=== PATIENT | female | born 1975 | race African-American/Black ===

== ENCOUNTER 2017-11-02 15:08 | Emergency (ER) | payer MEDICAID ==
[~2017-11-02] VITALS: Ht 165.1 cm; Wt 70.0 kg
[2017-11-02 15:10] VITALS: BP 140/80
== END 2017-11-02 17:43 | disposition left against medical advice (07) ==
LOC: ER 15:26
DX: Z53.21 Procedure and treatment not carried out due to patient leaving prior to being seen by health care provider (principal)

== ENCOUNTER 2018-06-03 18:48 | Emergency (ER) | payer MEDICAID ==
[~2018-06-03] VITALS: Ht 162.6 cm; Wt 92.2 kg
[2018-06-03] MEDS ORDERED: ACETAMINOPHEN 325MG TABLET PO ONE (20:30)
[2018-06-03 21:00] VITALS: BP 120/72
== END 2018-06-03 21:05 | disposition home or self-care (01) ==
LOC: ER 18:48
DX: M54.31 Sciatica, right side (principal); F12.10 Cannabis abuse, uncomplicated; F17.210 Nicotine dependence, cigarettes, uncomplicated; Z98.890 Other specified postprocedural states
CPT/HCPCS: 99283

== ENCOUNTER 2018-08-30 07:47 | Inpatient (IN) | payer MEDICAID ==
[~2018-08-30] VITALS: Ht 162.6 cm; Wt 75.3 kg
[2018-08-30 08:32] LABS: BASOPHILS % 0.9 % (0.0-2.0); EOSINOPHILS % 0.9 % (0.0-5.0); HEMATOCRIT. 43.4 % (36.0-48.0); HEMOGLOBIN. 15.2 g/dL (12.0-16.0); LYMPHOCYTES % 24.6 % (20.0-50.0); MEAN CORPUSCULAR HEMOGLOBIN 31.3 pg (28.0-32.0); MEAN CORPUSCULAR VOLUME 89.5 fL (81.0-99.0); MEAN PLATELET VOLUME 11.7 fl (7.4-10.4); MONOCYTES % 6.6 % (2.0-8.0); PLATELET 227 x1000/uL (130-400); RED BLOOD CELL COUNT 4.85 mill/uL (4.2-5.4); RED CELL DISTRIBUTION WIDTH 13.5 % (11.6-14.6)
[2018-08-30 08:39] LABS: CHLORIDE 89 mEq/L (98-107)
[2018-08-30] MEDS ORDERED: MORPHINE SULFATE 4 MG/ML CPJ (NOT FOR IM USE) IV ONE (09:45)
[2018-08-30] MEDS ORDERED: POTASSIUM CHLORIDE 20MEQ TABLET SR PO ONE (10:30)
[2018-08-30 13:00] VITALS: BP 132/79
[2018-08-30] MEDS ORDERED: IPRATROPIUM/ALBUTEROL 0.5-3(2.5)MG/3ML NEB INH PRN (14:00)
[2018-08-30] MEDS ORDERED: DOCUSATE SODIUM 100MG CAPSULE PO PRN (14:00)
[2018-08-30] MEDS ORDERED: POTASSIUM CHLORIDE 20MEQ TABLET SR PO SCH (14:00)
[2018-08-30] MEDS ORDERED: LORAZEPAM 0.5MG TABLET PO PRN (14:00)
[2018-08-30] MEDS ORDERED: CLONIDINE 0.1MG TABLET PO PRN (14:00)
[2018-08-30] MEDS ORDERED: HYDROCODONE/ACETAMINOPHEN 5/325MG TABLET PO PRN (14:00)
[2018-08-30] MEDS ORDERED: ACETAMINOPHEN 325MG TABLET PO PRN (14:00)
[2018-08-30] MEDS: ONDANSETRON HCL 4MG/2ML INJ IV PRN (14:20)
[2018-08-30] MEDS: PANTOPRAZOLE 40MG DR TABLET PO SCH (14:20)
[2018-08-30] MEDS: MORPHINE SULFATE 2 MG/ML CPJ (NOT FOR IM USE) IV PRN (14:23)
[2018-08-30] MEDS ORDERED: TRAM50TA PO (15:07)
[2018-08-30 16:00] VITALS: BP 120/70
[2018-08-30] MEDS ORDERED: POTASSIUM CHLORIDE INJ 40 MEQ in DEXT 5% WATER 250 ML IV SCH (16:00)
[2018-08-30 20:00] VITALS: BP 134/52
[2018-08-30 20:50] LABS: CREATINE KINASE 158 IU/L (26-192); LDL CHOLESTEROL 96 mg/dL (5-100)
[2018-08-30 20:52] LABS: HDL CHOLESTEROL 44 mg/dL (40-59)
[2018-08-30 21:06] LABS: CREATINE KINASE MB FRACTION < 1.0 ng/mL (0.5-3.6)
[2018-08-30 21:10] LABS: HCG SCREEN NEGATIVE
[2018-08-30 21:51] LABS: HEPATITIS A AB IGM NEGATIVE (NEGATIVE); HEPATITIS B SURFACE ANTIGEN NEGATIVE
[2018-08-31] VITALS: BP 118/78
[2018-08-31 04:00] VITALS: BP 122/77
[2018-08-31] MEDS: PANTOPRAZOLE 40MG DR TABLET PO SCH (06:45)
[2018-08-31 06:51] LABS: CHLORIDE 93 mEq/L (98-107)
[2018-08-31 07:18] LABS: BASOPHILS % 0.3 % (0.0-2.0); EOSINOPHILS % 1.4 % (0.0-5.0); HEMATOCRIT. 39.8 % (36.0-48.0); HEMOGLOBIN. 13.7 g/dL (12.0-16.0); LYMPHOCYTES % 33.3 % (20.0-50.0); MEAN CORPUSCULAR HEMOGLOBIN 31.3 pg (28.0-32.0); MEAN CORPUSCULAR VOLUME 90.9 fL (81.0-99.0); MEAN PLATELET VOLUME 11.9 fl (7.4-10.4); MONOCYTES % 8.3 % (2.0-8.0); NEUTROPHILS % 56.7 % (40.0-76.0); PLATELET 191 x1000/uL (130-400); RED BLOOD CELL COUNT 4.38 mill/uL (4.2-5.4); RED CELL DISTRIBUTION WIDTH 13.8 % (11.6-14.6)
[2018-08-31 08:00] VITALS: BP 99/76
[2018-08-31] MEDS ORDERED: POTASSIUM CHLORIDE INJ 40 MEQ in DEXT 5% WATER 250 ML IV NR (09:30)
[2018-08-31] MEDS ORDERED: POTASSIUM CHLORIDE 20MEQ TABLET SR PO SCH ×2 (11:45→14:00)
[2018-08-31 12:00] VITALS: BP 109/66
[2018-08-31 16:00] VITALS: BP 138/87
[2018-08-31 17:39] LABS: *BARBITURATES SCREEN URINE NEGATIVE (NEGATIVE)
[2018-08-31 17:40] LABS: *AMPHETAMINES SCREEN URINE NEGATIVE (NEGATIVE); *BENZODIAZEPINES SCREEN URINE NEGATIVE (NEGATIVE); *COCAINE SCREEN URINE NEGATIVE (NEGATIVE); METHADONE URINE SCREEN NEGATIVE (NEGATIVE); PHENCYCLIDINE URINE SCREEN NEGATIVE (NEGATIVE)
[2018-08-31 17:43] LABS: CANNABINOID URINE SCREEN PRESUMTIVE POSITIVE (NEGATIVE); OPIATES URINE SCREEN PRESUMTIVE POSITIVE (NEGATIVE)
[2018-08-31 20:00] VITALS: BP 121/77
[2018-08-31] MEDS: SUCRALFATE 1 G/10 ML UDC PO SCH (21:12)
[2018-09-01] VITALS: BP 109/64
[2018-09-01 04:00] VITALS: BP 151/89
[2018-09-01] MEDS: ONDANSETRON HCL 4MG/2ML INJ IV PRN ×2 (05:04→11:43)
[2018-09-01] MEDS: MORPHINE SULFATE 2 MG/ML CPJ (NOT FOR IM USE) IV PRN (05:04)
[2018-09-01 05:55] LABS: BASOPHILS % 0.6 % (0.0-2.0); EOSINOPHILS % 1.2 % (0.0-5.0); HEMATOCRIT. 38.5 % (36.0-48.0); LYMPHOCYTES % 22.6 % (20.0-50.0); MEAN CORPUSCULAR VOLUME 91.4 fL (81.0-99.0); MEAN PLATELET VOLUME 11.4 fl (7.4-10.4); NEUTROPHILS % 68.6 % (40.0-76.0); PLATELET 197 x1000/uL (130-400); RED BLOOD CELL COUNT 4.21 mill/uL (4.2-5.4); RED CELL DISTRIBUTION WIDTH 13.5 % (11.6-14.6)
[2018-09-01 06:13] LABS: CHLORIDE 97 mEq/L (98-107)
[2018-09-01] MEDS: PANTOPRAZOLE 40MG DR TABLET PO SCH (06:21)
[2018-09-01] MEDS: SUCRALFATE 1 G/10 ML UDC PO SCH ×4 (06:21→21:00)
[2018-09-01 08:00] VITALS: BP 112/66
[2018-09-01] MEDS ORDERED: PANT40TA4 PO (10:25)
[2018-09-01 12:00] VITALS: BP 118/76
[2018-09-01 16:00] VITALS: BP 144/92
[2018-09-01] MEDS ORDERED: BISACODYL 10MG SUPP PR PRN (19:30)
[2018-09-01 20:00] VITALS: BP 120/75
[2018-09-01] MEDS ORDERED: BISACODYL 10MG SUPP PR NR (20:00)
[2018-09-01] MEDS: FAMOTIDINE 20MG TABLET PO SCH (21:30)
[2018-09-02] VITALS: BP 128/82
[2018-09-02 04:00] VITALS: BP 121/76
[2018-09-02] MEDS: SUCRALFATE 1 G/10 ML UDC PO SCH ×2 (06:32→12:43)
[2018-09-02 08:00] VITALS: BP 113/83
[2018-09-02 08:12] LABS: HIV SCREEN 4G Non Reactive (Non Reactive)
[2018-09-02] MEDS ORDERED: DOCUSATE SODIUM 100MG CAPSULE PO SCH (09:00)
[2018-09-02] MEDS: FAMOTIDINE 20MG TABLET PO SCH (09:10)
[2018-09-02 09:33] LABS: BASOPHILS % 0.7 % (0.0-2.0); EOSINOPHILS % 1.4 % (0.0-5.0); HEMATOCRIT. 39.5 % (36.0-48.0); HEMOGLOBIN. 13.7 g/dL (12.0-16.0); LYMPHOCYTES % 29.8 % (20.0-50.0); MEAN CORPUSCULAR HEMOGLOBIN 31.9 pg (28.0-32.0); MEAN CORPUSCULAR VOLUME 91.9 fL (81.0-99.0); MEAN PLATELET VOLUME 11.2 fl (7.4-10.4); MONOCYTES % 6.7 % (2.0-8.0); NEUTROPHILS % 61.4 % (40.0-76.0); PLATELET 214 x1000/uL (130-400); RED CELL DISTRIBUTION WIDTH 13.6 % (11.6-14.6)
[2018-09-02 09:45] LABS: CHLORIDE 97 mEq/L (98-107)
[2018-09-02] MEDS ORDERED: SORBITOL 70% SOLN 30ML PO NR (11:30)
[2018-09-02 12:00] VITALS: BP 140/80
[2018-09-02 15:24] VITALS: BP 128/93
== END 2018-09-02 15:58 | disposition home or self-care (01) | DRG 241 ==
LOC: ER 07:47 → 5WST 10:30 → ENRESERV 10:47
PROVIDERS: ADMIT Internal Medicine; ATTEND Internal Medicine
DX: K27.9 Peptic ulcer, site unspecified, unspecified as acute or chronic, without hemorrhage or perforation (principal); K76.0 Fatty (change of) liver, not elsewhere classified; E87.1 Hypo-osmolality and hyponatremia; K22.6 Gastro-esophageal laceration-hemorrhage syndrome; E87.6 Hypokalemia; F10.10 Alcohol abuse, uncomplicated; F12.90 Cannabis use, unspecified, uncomplicated; I10 Essential (primary) hypertension; D64.9 Anemia, unspecified; D72.829 Elevated white blood cell count, unspecified; F17.210 Nicotine dependence, cigarettes, uncomplicated; K59.00 Constipation, unspecified; G89.29 Other chronic pain; M54.5 Low back pain; M94.0 Chondrocostal junction syndrome [Tietze]; K21.9 Gastro-esophageal reflux disease without esophagitis
CPT/HCPCS: 36415; 71045; 76700; 80048; 80061; 80076; 80305; 82140; 82550; 82553; 83036; 83880; 84443; 84484; 84703; 85379; 86705; 86709; 86803; 87340; 87389; 93005; 93306; 96374; 99285; J2270; J2405; J3480; J7050; J7060

== ENCOUNTER 2022-02-24 11:14 | Emergency (ER) | payer MEDICAID ==
[~2022-02-24] VITALS: Ht 162.6 cm; Wt 91.0 kg
[~2022-02-24 11:14] MED LIST: PANT40TA51 PO; TRAM50TA PO
[2022-02-24] MEDS ORDERED: MORPHINE SULFATE 2 MG/ML CPJ (NOT FOR IM USE) IV ONE (12:30)
[2022-02-24] MEDS ORDERED: ONDANSETRON HCL 4MG/2ML INJ IV ONE (12:30)
[2022-02-24] MEDS ORDERED: FAMOTIDINE 20MG/2ML VIAL IV ONE (12:30)
[2022-02-24] MEDS ORDERED: MAGNESIUM/ALUMINUM HYDROXIDE/SIMETHICONE 30ML UDC PO ONE (12:30)
[2022-02-24] MEDS ORDERED: SODIUM CHLORIDE 0.9% 1,000 ML IV ONE (12:30)
[2022-02-24 12:42] LABS: CLARITY URINE TURBID (CLEAR); COLOR URINE DARK YELLOW (YELLOW); KETONES URINE 1+ (NEGATIVE); LEUKOCYTE ESTERASE URINE 1+ (NEGATIVE); NITRITE URINE NEGATIVE (NEGATIVE); OCCULT BLOOD URINE TRACE (NEGATIVE); PH URINE 5.5 (4.5-8.0); PROTEIN URINE 2+ (NEGATIVE); SPECIFIC GRAVITY URINE 1.038 (1.005-1.030)
[2022-02-24 12:50] LABS: BASOPHILS % 0.3 % (0.0-2.0); HEMOGLOBIN. 16.3 g/dL (12.0-16.0); LYMPHOCYTES % 14.7 % (20.0-50.0); MEAN CORPUSCULAR HEMOGLOBIN 30.9 pg (28.0-32.0); MEAN CORPUSCULAR VOLUME 90.8 fL (81.0-99.0); MONOCYTES % 5.6 % (2.0-8.0); NEUTROPHILS % 79.4 % (40.0-76.0); RED BLOOD CELL COUNT 5.28 mill/uL (4.2-5.4); RED CELL DISTRIBUTION WIDTH 13.5 % (11.6-14.6)
[2022-02-24 12:57] LABS: CHLORIDE 98 mEq/L (98-107)
[2022-02-24 12:59] LABS: *AMPHETAMINES SCREEN URINE NEGATIVE (NEGATIVE); *BARBITURATES SCREEN URINE NEGATIVE (NEGATIVE); *BENZODIAZEPINES SCREEN URINE NEGATIVE (NEGATIVE); *COCAINE SCREEN URINE NEGATIVE (NEGATIVE); METHADONE URINE SCREEN NEGATIVE (NEGATIVE); OPIATES URINE SCREEN NEGATIVE (NEGATIVE); PHENCYCLIDINE URINE SCREEN NEGATIVE (NEGATIVE)
[2022-02-24 13:03] LABS: ETHANOL BLOOD < 10 mg/dL
[2022-02-24 13:11] LABS: HCG SCREEN NEGATIVE
[2022-02-24 13:27] LABS: CANNABINOID URINE SCREEN PRESUMTIVE POSITIVE (NEGATIVE)
[2022-02-24] MEDS ORDERED: CEFTRIAXONE 1 G PREMIX 50 ML IV ONE (13:45)
[2022-02-24] MEDS ORDERED: CEFP200T13 MT (14:27)
[2022-02-24 16:04] VITALS: BP 139/71
== END 2022-02-24 16:33 | disposition home or self-care (01) ==
LOC: ER 11:14
DX: N39.0 Urinary tract infection, site not specified (principal); F12.10 Cannabis abuse, uncomplicated; Z98.890 Other specified postprocedural states
CPT/HCPCS: 36415; 80053; 80305; 80320; 81003; 81025; 83690; 84703; 85025; 87086; 93005; 96361; 96365; 96375; 99285; J0696; J2270; J2405; J3490; J7030; Z7610; G0480

== ENCOUNTER 2023-05-17 15:52 | Emergency (ER) | payer BC, MEDICAID ==
[~2023-05-17] VITALS: Ht 162.6 cm; Wt 90.0 kg
[2023-05-17 16:00] VITALS: BP 167/115; PULSE 104; RESP 19; TEMP 98.3; O2SAT 99
[2023-05-17 17:36] LABS: BASOPHILS % 0.5 % (0.0-2.0); EOSINOPHILS % 0.4 % (0.0-5.0); HEMATOCRIT. 52.5 % (36.0-48.0); LYMPHOCYTES % 28.1 % (20.0-50.0); MEAN CORPUSCULAR HEMOGLOBIN 31.8 pg (28.0-32.0); MEAN CORPUSCULAR HGB CONC 34.4 g/dL (31.0-37.0); MEAN CORPUSCULAR VOLUME 92.5 fL (81.0-99.0); MONOCYTES % 6.7 % (2.0-8.0); NEUTROPHILS % 64.3 % (40.0-76.0); PLATELET 256 x1000/uL (130-400); RED BLOOD CELL COUNT 5.67 mill/uL (4.2-5.4); RED CELL DISTRIBUTION WIDTH 13.4 % (11.6-14.6)
[2023-05-17 17:54] LABS: HCG SCREEN NEGATIVE
[2023-05-17 17:59] LABS: ALANINE AMINOTRANSFERASE 39 IU/L (10-49); ALBUMIN 4.4 g/dL (3.2-4.8); ASPARTATE AMINOTRANSFERASE 27 IU/L (<34); BILIRUBIN TOTAL 0.8 mg/dL (0.1-1.0); CARBON DIOXIDE 32 mEq/L (21-32); CHLORIDE 95 mEq/L (98-107); CREATININE 1.2 mg/dL (0.6-1.0); GLUCOSE 134 mg/dL (70-105); POTASSIUM 3.2 mEq/L (3.5-5.1); PROTEIN TOTAL 7.5 g/dL (6.0-8.3); SODIUM 134 mEq/L (136-145); UREA NITROGEN BLOOD 15 mg/dL (9-23)
== END 2023-05-17 18:09 | disposition left against medical advice (07) ==
LOC: ER 15:53
DX: R10.9 Unspecified abdominal pain (principal); Z53.21 Procedure and treatment not carried out due to patient leaving prior to being seen by health care provider
CPT/HCPCS: 36415; 80053; 84703; 85025; 99281

== ENCOUNTER 2023-11-11 23:59 | Emergency (ER) | payer BC, MEDICAID ==
[~2023-11-11] VITALS: Ht 162.6 cm; Wt 90.0 kg
[2023-11-12 00:27] VITALS: O2SAT 97
[2023-11-12 01:00] LABS: CLARITY URINE CLEAR (CLEAR); COLOR URINE DARK YELLOW (YELLOW); GLUCOSE URINE NEGATIVE (NEGATIVE); KETONES URINE NEGATIVE (NEGATIVE); LEUKOCYTE ESTERASE URINE 2+ (NEGATIVE); NITRITE URINE NEGATIVE (NEGATIVE); OCCULT BLOOD URINE NEGATIVE (NEGATIVE); PH URINE 6.5 (4.5-8.0); PROTEIN URINE TRACE (NEGATIVE); SPECIFIC GRAVITY URINE 1.029 (1.005-1.030)
[2023-11-12 01:02] LABS: EOSINOPHILS % 1.3 % (0.0-5.0); HEMATOCRIT. 44.3 % (36.0-48.0); HEMOGLOBIN. 15.2 g/dL (12.0-16.0); MEAN CORPUSCULAR HEMOGLOBIN 31.6 pg (28.0-32.0); MEAN CORPUSCULAR HGB CONC 34.3 g/dL (31.0-37.0); MEAN CORPUSCULAR VOLUME 92.1 fL (81.0-99.0); MEAN PLATELET VOLUME 10.2 fl (7.4-10.4); MONOCYTES % 7.3 % (2.0-8.0); NEUTROPHILS % 59.4 % (40.0-76.0); PLATELET 221 x1000/uL (130-400); RED BLOOD CELL COUNT 4.81 mill/uL (4.2-5.4); RED CELL DISTRIBUTION WIDTH 14.3 % (11.6-14.6)
[2023-11-12 01:04] LABS: CHLORIDE 105 mEq/L (98-107); POTASSIUM 3.6 mEq/L (3.5-5.1); SODIUM 136 mEq/L (136-145)
[2023-11-12 01:05] LABS: CALCIUM 8.9 mg/dL (8.7-10.4); CARBON DIOXIDE 26 mEq/L (21-32)
[2023-11-12 01:10] LABS: CREATININE 1.3 mg/dL (0.6-1.0); GLUCOSE 106 mg/dL (70-105)
[2023-11-12 01:11] LABS: UREA NITROGEN BLOOD 10 mg/dL (9-23)
[2023-11-12 01:12] LABS: ALANINE AMINOTRANSFERASE 17 IU/L (10-49); ALBUMIN 4.3 g/dL (3.2-4.8); ASPARTATE AMINOTRANSFERASE 22 IU/L (<34); BILIRUBIN DIRECT 0.1 mg/dL (<=3.0)
[2023-11-12 01:13] LABS: BILIRUBIN TOTAL 0.4 mg/dL (0.1-1.0); PROTEIN TOTAL 7.3 g/dL (6.0-8.3)
[2023-11-12 02:15] LABS: TROPONIN I HIGH SENSITIVITY < 4 ng/L (3.0-34)
[2023-11-12 02:55] LABS: SQUAMOUS EPITHELIAL CELL URINE 1+ /lpf (RARE/1+)
[2023-11-12 02:57] LABS: RBC URINE 0-2 /hpf (0-2)
[2023-11-12 02:58] LABS: BACTERIA URINE NONE SEEN
[2023-11-12] MEDS: KETOROLAC 30MG/ML VIAL IM STA (05:42)
[2023-11-12] MEDS ORDERED: IBUP-2029 MT (06:40)
[2023-11-12 07:07] VITALS: BP 141/86; PULSE 82; RESP 18; TEMP 37.00296; O2SAT 98
== END 2023-11-12 07:09 | disposition home or self-care (01) ==
LOC: ER 23:59
DX: M79.10 Myalgia, unspecified site (principal); R07.89 Other chest pain; F12.10 Cannabis abuse, uncomplicated; Z79.899 Other long term (current) drug therapy
CPT/HCPCS: 99285; 76705; 80076; 80048; 81003; 83690; 85025; 84484; 36415; 93005; 96372; J1885